=== PATIENT | male | born 1985 | race African-American/Black ===

== ENCOUNTER 2020-07-09 02:06 | Emergency (ER) | payer BC, SELFPAY ==
--- NOTE | ~2020-07-09 | XR_ITS ---
EXAMINATION: XR chest 1V portable INDICATION: Fever and chills TECHNIQUE: Portable AP chest at 0415 hours COMPARISON: None available FINDINGS: There is mild atelectasis of the lung bases. No focal airspace opacities are identified. Th ere is no pleural effusion or pneumothorax. The cardiomediastinal silhouette is normal. IMPRESSION: 1. Mild atelectasis of the lung bases. Reviewed, dictated and finalized at location A. UTATIONAL SCIENTIST
--- NOTE | ~2020-07-09 | CT_ITS ---
EXAMINATION: CT brain wo con INDICATION: Transient alteration of awareness COMPARISON: None TECHNIQUE: Standard unenhanced head CT. The dose-length product (DLP) was 529.67 mGy-cm. The mA was a djusted according to patient size. Iterative reconstruction technique was employed. FINDINGS: There is no intracranial hemorrhage, acute infarction, or abnormal mass lesion. The ventric les are normal. There is no abnormal mass effect or midline shift. The adamson-white matter differentiat ion is normal. The basal cisterns are patent. A metallic density projects in the anteromedial/superio r aspect of the left globe near the lens. There is a curvilinear metallic density in the right orbit near the lateral rectus muscle. The paranasal sinuses, mastoids and calvarium are normal. IMPRESSION: 1. No acute intracranial abnormality. 2. Metallic intraorbital foreign bodies. Correlate with surgical and trauma history. Reviewed, dictated and finalized at location A. IAL EVENT ASSISTANT IMPRESSION: 1. No acute intracranial abnormality. 2. Metallic intraorbital foreign bodies. Correlate with surgical and trauma his tory.
[2020-07-09 02:10] VITALS: BP 129/81; PULSE 114; RESP 20; TEMP 36.9; O2SAT 96
--- NOTE | 2020-07-09 02:22 | ECG_ITS ---
Measurements Intervals [place] Rate: 117 P: 76 WA: 134 QRS: -19 QRSD: 92 T: 66 QT: 310 QTc: 434 Interpretive Statements SINUS TACHYCARDIA INCOMPLETE RIGHT BUNDLE BRANCH BLOCK BASELINE ARTIFACT- I, II, AVR, AVL, AVF, V1-V6 ABNORMAL ECG Electronically Signed On 07-10-2020 7:17:59 [employer]SPORTATION SALES CONSULTANT by Alejandro Berumen D.O.
[2020-07-09] MEDS: ALPRAZolam (*CRX) 0.5 MG TABLET 1 MG PO (03:00)
--- NOTE | 2020-07-09 03:07 | ED.DIZZY ---
HPI - Dizziness General Chief Complaint: Dizziness Stated Complaint: PAIN Time Seen by Provider: 07/09/20 02:20 Source: patient and EMS Mode of arrival: ambulatory Limitations: no limitations History of Present Illness HPI Narrative: Patient presents with presyncope, feeling he could faint while walking. This came on suddenly just prior to arrival. This has partially resolved, but he still feels presyncopal. Resting helps decrease the sensation. He has had a clot in his right leg. He has been on lovenox 80mg bid and warfarin 7.5mg daily. MD elicited complaint: dizziness, lightheadedness, near syncope, difficulty walking and vertigo Pertinent past history: inner ear problems Onset (ago): minute(s) (30) Timing: sudden onset Severity: severe Description: sense of movement, room spinning , lightheadedness, off-balance, difficulty walking and near-syncope Exacerbating factors: nothing and movement/ambulation Relieving factors: remaining still Associated symptoms: denies other symptoms, nausea, diaphoresis, fever, malaise, shortness of breath, rash, ear discomfort and palpatations Associated neuro symptoms: other (aura as before seizure) Related Data Allergies Allergy/AdvReac Type Severity Reaction Status Date / Time Fish Containing Products Allergy Unknown Verified 07/09/20 02:34 ketorolac [From Toradol] Allergy Unknown Verified 07/09/20 02:34 Penicillins Allergy Unknown Verified 07/09/20 02:34 Review of Systems Constitutional: Comments: fatigue past few days Eyes: Eyes: Reports no additional eye complaints ENT: Reports system reviewed and no additional complaints, except as documented Cardiovascular: Cardiovascular: Reports no additional cardiovascular complaints Respiratory: Respiratory: Reports no additional respiratory complaints Gastrointestinal: Gastrointestinal: Reports no additional gastrointestinal complaints Genitourinary: Genitourinary: Reports no additional male genitourinary complaints Musculoskeletal: Musculoskeletal: Reports no additional musculoskeletal complaints Integumentary/Breasts: Skin/Breast: Reports system reviewed and no additional complaints, except as docu Neurologic: Reports system reviewed and no additional complaints, except as documented Psychiatric: Psychiatric: Reports no additional psychiatric complaints Endocrine: Endocrine: Reports no additional endocrine complaints Hematologic/Lymphatic: Hematologic/Lymphatic: Reports no additional hematologic/lymphatic complaints Allergic/Immunologic: Allergic/Immunologic: Reports no additional allergic/immunologic complaints PMFSH Past Medical History Medical History Aortic aneurysm Deep venous thrombosis (DVT) of right peroneal vein Diabetes mellitus Hip arthritis Subclavian artery disease Family History Family History (Updated 07/09/20 @ 03:30 by Salas Hendricks MD) Mother Family history non-contributory Social History Social History (Updated 07/09/20 @ 03:33 by Salas Hendricks MD) Smokeless tobacco user: chewing tobacco Living arrangements: alone Occupation/Education: occupation 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 Gender identity (if verbalized by the patient): Male Exam Const: General: no acute distress and alert Orientation/consciousness: patient oriented x3 HENMT: Head: normal to inspection Face and sinus: normal facial exam Mouth: Yes Normal oral and palatal mucosa present Eyes: Conjunctivae: conjunctivae normal Neck: Neck: normal visual inspection Chest: Chest palpation & inspection: normal inspection of the chest Resp: Effort & Inspection: normal respiratory effort Auscultation: clear to auscultation bilaterally Cardio: Rate: regular rate Rhythm: regular rhythm GI: GI Palp: Yes Soft to palpation (non tender) Back/Spine/Pelvis: Back: no CVA tenderness Skin: General skin exam: normal color Neuro: General: patie
[2020-07-09 03:31] LABS: SARS-CoV-2 Ag Negative (Negative)
--- NOTE | 2020-07-09 03:39 | PC.NURSE ---
0200 multiple attempts to start iv, unsuccessful.
[2020-07-09] MEDS: LORazepam (*CRX) 0.5 MG TABLET 1 MG (04:13)
--- NOTE | 2020-07-09 04:31 | PC.NURSE ---
call to [facility], spoke to tavo [phone]
--- NOTE | 2020-07-09 05:02 | PC.NURSE ---
[facility] declined pt without any lab results, dr gallegos attempting EJ access.
--- NOTE | 2020-07-09 05:26 | PC.NURSE ---
pt sleeping, opens eyes, slow to respond after ativan and seizure activity. able to state own name. pt oriented to self only
[2020-07-09 06:54] LABS: Basophils Absolute Auto 0.02 K/mm3 (0.00-0.10); Basophils Percent Auto 0.2 % (0.0-1.0); Eosinophils Absolute Auto 0.45 K/mm3 (0.02-0.50); Eosinophils Percent Auto 5.6 % (1.0-6.0); Hematocrit 36.8 % (40.0-54.0); Hemoglobin 11.9 g/dL (14.0-18.0); Immature Granulocyte Absolute 0.02 K/mm3 (0.00-0.00); Immature Granulocyte Percent A 0.2 % (0.0-0.0); Lymphocytes Absolute Auto 2.49 K/mm3 (1.10-4.50); Lymphocytes Percent Auto 30.9 % (18.0-42.0); Mean Corpuscular HGB Conc 32.3 g/dL (32.0-36.0); Mean Corpuscular Hemoglobin 29.2 pg (27.0-31.0); Mean Corpuscular Volume 90.4 fL (78.0-102.0); Mean Platelet Volume 10.5 fl (8.7-11.0); Monocytes Percent Auto 8.7 % (2.0-11.0); Neutrophils Absolute Auto 4.4 K/mm3 (1.7-7.2); Neutrophils Percent Auto 54.4 % (50.0-70.0); Platelet Count Result 220 K/mm3 (150-420); Red Blood Count 4.07 M/mm3 (4.70-6.10); Red Cell Distribution Width 14.5 % (11.6-14.4); White Blood Count 8.1 K/mm3 (4.8-10.8)
[2020-07-09 07:10] LABS: BNP < 5.0 pg/mL (0-100)
[2020-07-09 07:10] LABS: Partial Thromboplastin Time 26.2 SEC (23.90-30.70); Prothrombin Time 11.1 Seconds (9.50-12.10)
[2020-07-09 07:11] LABS: Lactic Acid Reflex 0.6 mmol/L (0.4-2.0)
[2020-07-09 07:11] LABS: Alanine Aminotransferase 34 U/L (16-63); Albumin Level 3.5 g/dL (3.4-5.0); Alkaline Phosphatase 80 U/L (46-116); Anion Gap 10 mmol/L (8-16); Aspartate Amino Transferase 38 U/L (15-37); Bilirubin,Total 0.5 mg/dL (0.00-1.00); Blood Urea Nitrogen 9 mg/dL (7-18); Calcium 9.2 mg/dL (8.5-10.1); Carbon Dioxide 28 mmol/L (21-32); Chloride 99 mmol/L (98-108); Estimated CRCL calculation 146 ml/min; Estimated Glomerular Filt Rate > 60; Glucose 91 mg/dL (70-99); Osmolality Calculated 282 mOsm/kg (285-295); Potassium 3.6 mmol/L (3.5-5.1); Sodium 137 mmol/L (136-145); Total Protein 7.7 g/dL (6.4-8.2)
[2020-07-09 07:12] LABS: D Dimer 0.62 mg/L (0.19-0.50)
[2020-07-09 07:13] LABS: Troponin I < 4.0 ng/L (0.00-60.4)
--- NOTE | 2020-07-09 07:24 | PC.NURSE ---
0430 pt sleeping , arouses to name, eyes remain blood shot. 0500 pt sleeping, no seizure activity. 0530 pt sleeping. 0600 pt sleeping, repositions self 0700 report to martín gray. pt sleeping. answers when spoken to.
[2020-07-09 07:25] VITALS: BP 104/62; PULSE 94; O2SAT 99
[2020-07-09] MEDS: SODIUM CHLORIDE 0.9% IV 1,000 ML 999 ML IV CONT (07:58)
[2020-07-09 08:11] LABS: Ammonia 17 umol/L (11-32)
[2020-07-09 08:30] LABS: Ethanol < 3 mg/dL (0-6)
[2020-07-09 08:49] LABS: Glucose Point of Care 72 (65-105)
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
[2020-07-09 09:06] LABS: Appearance Urine Clear (Clear); Bilirubin Urine Negative (Negative); Color Urine Yellow (Yellow); Glucose Urine UA Negative (Negative); Ketones Urine 1+ (Negative); Leukocyte Esterase Ur Negative (Negative); Nitrate Urine Negative (Negative); Protein Urine Negative (Negative); Specific Grav Ur 1.015 (1.010-1.020); Urobilinogen Urine 0.2 mg/dL (0.2-1.0)
[2020-07-09 09:11] LABS: Amphetamine Screen Urine Positive (Negative); Barbiturate Screen Urine Negative (Negative); Benzodiazepines Screen Urine Positive (Negative); Cannabinoid Screen Urine Negative (Negative); Cocaine Screen Urine Negative (Negative); Methadone Screen Urine Negative (Negative); Opiate Screen Urine Negative (Negative); Phencyclidine Screen Urine Negative (Negative)
[2020-07-09 09:13] LABS: Add Urine Microscopic? YES; Blood Urine Trace (Negative); RBC Urine 0-2 /hpf (0-2); Squamous Epithelial Cell Urine Few /hpf (Few); WBC Urine 0-3 /hpf (0-3)
--- NOTE | 2020-07-09 09:13 | PC.NURSE ---
DR SAM PEACE CALLED FOR [facility] [phone]
[2020-07-09 09:14] LABS: Bacteria Urine Trace /hpf
[2020-07-09 09:26] VITALS: BP 110/72; PULSE 95; O2SAT 99
--- NOTE | 2020-07-09 10:23 | ED.DIZZY ---
HPI - Dizziness General Chief Complaint: Dizziness Stated Complaint: PAIN Time Seen by Provider: 07/09/20 08:00 Source: patient and EMS Mode of arrival: ambulatory Limitations: no limitations History of Present Illness Severity: severe Exacerbating factors: nothing and movement/ambulation Relieving factors: remaining still Related Data Home Medications Medication Instructions Recorded Confirmed Keppra 1,000 mg PO BID 07/09/20 07/09/20 atorvastatin 40 mg PO DAILY 07/09/20 07/09/20 enoxaparin 80 mg SUBCUT BID 07/09/20 07/09/20 omeprazole 20 mg PO DAILY 07/09/20 07/09/20 oxcarbazepine 300 mg PO BID 07/09/20 07/09/20 prednisone 20 mg PO BID 07/09/20 07/09/20 sulfasalazine 500 mg PO BID 07/09/20 07/09/20 warfarin 7 mg PO DAILY 07/09/20 07/09/20 Allergies Allergy/AdvReac Type Severity Reaction Status Date / Time Fish Containing Products Allergy Unknown Verified 07/09/20 02:34 ketorolac [From Toradol] Allergy Unknown Verified 07/09/20 02:34 Penicillins Allergy Unknown Verified 07/09/20 02:34 [facility] Past Medical History Medical History Aortic aneurysm Deep venous thrombosis (DVT) of right peroneal vein Diabetes mellitus Hip arthritis Subclavian artery disease Family History Family History (Updated 07/09/20 @ 03:30 by Salas Hendricks MD) Mother Family history non-contributory Social History Social History (Updated 07/09/20 @ 03:33 by Salas Hendricks MD) Smokeless tobacco user: chewing tobacco Living arrangements: alone Occupation/Education: occupation Additional occupation/education comments: works in a [employer] Gender identity (if verbalized by the patient): Male Course Vital Signs Vital signs: Vital Signs Temperature 36.9 C 07/09/20 02:10 Pulse Rate 114 H 07/09/20 02:10 Respiratory Rate 20 07/09/20 02:10 Blood Pressure 129/81 07/09/20 02:10 Pulse Oximetry 96 07/09/20 02:10 Temperature 36.9 C 07/09/20 02:10 Pulse Rate 95 07/09/20 09:26 Respiratory Rate 20 07/09/20 02:10 Blood Pressure 110/72 07/09/20 09:26 Pulse Oximetry 99 07/09/20 09:26 MDM - Dizziness Lab Data Result diagrams: 07/09/20 02:20 07/09/20 02:20 Labs: Lab Results 07/09/20 07/09/20 07/09/20 Range/Units 02:20 02:20 02:23 WBC 8.1 (4.8-10.8) K/mm3 RBC 4.07 L (4.70-6.10) M/mm3 Hgb 11.9 L (14.0-18.0) g/dL Hct 36.8 L (40.0-54.0) % MCV 90.4 (78.0-102.0) fL MCH 29.2 (27.0-31.0) pg MCHC 32.3 (32.0-36.0) g/dL RDW 14.5 H (11.6-14.4) % Plt Count 220 (150-420) K/mm3 MPV 10.5 (8.7-11.0) fl Immature Gran % (Auto) 0.2 H (0.0-0.0) % Neut % (Auto) 54.4 (50.0-70.0) % Lymph % (Auto) 30.9 (18.0-42.0) % [place] % (Auto) 8.7 (2.0-11.0) % Eos % (Auto) 5.6 (1.0-6.0) % Baso % (Auto) 0.2 (0.0-1.0) % Lymph # (Auto) 2.49 (1.10-4.50) K/mm3 [place] # (Auto) 0.70 (0.10-0.90) K/mm3 Eos # (Auto) 0.45 (0.02-0.50) K/mm3 Baso # (Auto) 0.02 (0.00-0.10) K/mm3 Abs Immat Gran (auto) 0.02 H (0.00-0.00) K/mm3 Absolute Neuts (auto) 4.4 (1.7-7.2) K/mm3 Absolute Nucleated RBC 0.00 (0.00-0.00) K/mm3 Nucleated RBC % 0.0 (0-0.0) % PT (9.50-12.10) Seconds INR APTT (23.90-30.70) SEC D-Dimer (0.19-0.50) mg/L Sodium 137 (136-145) mmol/L Potassium 3.6 (3.5-5.1) mmol/L Chloride 99 (98-108) mmol/L Carbon Dioxide 28 (21-32) mmol/L Anion Gap 10 (8-16) mmol/L BUN 9 (7-18) mg/dL Creatinine 0.73 (0.70-1.30) mg/dL Estim Creat Clear Calc 146 ml/min Estimated GFR > 60 (59 - ) Glucose 91 (70-99) mg/dL POC Capillary Glucose (65-105) mg/dl Calculated Osmolality 282 L (285-295) mOsm/kg Lactic Acid 0.6 (0.4-2.0) mmol/L Calcium 9.2 (8.5-10.1) mg/dL Total Bilirubin 0.5 (0.00-1.00) mg/dL AST 38 H (15-37) U/L ALT 34 (16-63) U/L Alkaline Phosphatase 80
[2020-07-09 10:38] VITALS: BP 106/67; PULSE 105; O2SAT 99
--- NOTE | 2020-07-09 15:38 | PM.EVENT ---
Event Note Event Note Event Note: Assumed care from Dr. Hendricks at 7:00 a.m.. Patient complains mostly of right leg pain and episode of lightheadedness that occurred overnight. Patient states that he has a history of DVT and pulmonary emboli is currently taking warfarin. He states he has also been prescribed enoxaparin however he is waiting for his insurance to approve it. He states his [facility] Patient also has on his person discharge papers 06/29/2020 on a Blanquita Lomeli, date of 02/17/1993. Patient states that this is his brother. The discharge paperwork states that the discharge diagnosis is DVT and that the patient was to continue he has both his Lovenox and warfarin as prescribed. The listed follow-up doctor is Dr. Pelayo. The patient was unable to provide ID or insurance card. I spoke to a physician from [facility] in [place] who is states that patient's records have been removed from their system and the patient has been fired from their practice. I discussed the options of her treatment with Mr. Lozano and offered him a dose of enoxaparin today to cover him until he was able to follow-up with his doctor and/or check with his pharmacy tomorrow. He declined. He states, other than prednisone which he has been taking for his Crohn's disease, he has enough medications to get him through until he can follow up with his doctor.
== END 2020-07-09 10:44 | disposition home or self-care (01) ==
PROVIDERS: Emergency Medicine; Emergency Provider Emergency Medicine
DX: G40.409 Other generalized epilepsy and epileptic syndromes, not intractable, without status epilepticus (principal); I26.99 Other pulmonary embolism without acute cor pulmonale; Z20.822 Contact with and (suspected) exposure to COVID-19
CPT/HCPCS: 36415; 70450; 71045; 80053; 80307; 81001; 82140; 83605; 83880; 84484; 85025; 85380; 85610; 85730; 87426; 93005; 96360; 96361; 99283; 99284; A9270; C9803; J7030

== ENCOUNTER 2020-11-17 08:03 | Emergency (ER) | payer BC, SELFPAY ==
--- NOTE | ~2020-11-17 | XR_ITS ---
EXAMINATION: XR hip RT min 2V DATE: 11/17/2020 08:52 INDICATION: Right hip pain. TECHNIQUE: 2 views of right hip were obtained. COMPARISON: None. FINDINGS: Bone alignment is normal. No fracture. There is sclerosis in right femoral head, consistent with osteonecrosis. Right hip joint space is normal. IMPRESSION: 1. Osteonecrosis of right femoral head. Reviewed, dictated and finalized at location A.
[2020-11-17 08:15] VITALS: BP 149/103; PULSE 110; RESP 18; TEMP 36.6; O2SAT 98
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
--- NOTE | 2020-11-17 09:12 | PC.NURSE ---
Dr. White speaking with DR. Driver, pts neurologist.
[2020-11-17 09:56] VITALS: BP 165/90; PULSE 101; RESP 18; O2SAT 99
== END 2020-11-17 09:58 | disposition home or self-care (01) ==
PROVIDERS: Emergency Provider Emergency Medicine
DX: G40.909 Epilepsy, unspecified, not intractable, without status epilepticus (principal); M87.851 Other osteonecrosis, right femur
CPT/HCPCS: 73502; 99283